=== PATIENT | male | born 1935 | race Caucasian/White ===

== ENCOUNTER 2016-06-13 20:13 | Emergency (ER) | payer MEDICARE ==
[~2016-06-13] VITALS: Ht 180.3 cm; Wt 91.0 kg
[2016-06-13 20:14] VITALS: BP 138/77; PULSE 98; RESP 14; TEMP 98.7; O2SAT 97
[2016-06-13] MEDS ORDERED: SODIUM CHLOR 0.9% 1000 ML INJ 1,000 ML IV SCH (22:02)
[2016-06-13 22:08] VITALS: BP 146/82; PULSE 121; RESP 22; O2SAT 98
--- NOTE | 2016-06-13 22:08 | PD ---
HPI Chief Complaint: Respiratory Symptoms Time Seen by Provider: 22:08 Travel History International Travel<30 days: No Contact w/Intl Traveler<30days: No Traveled to known affect area: No History of Present Illness HPI 80-year-old male presents to the emergency department for evaluation of productive cough, fever and generalized weakness. The patient states that he's had a productive cough that is worsening over the past 2 weeks. States he has yellow-green sputum. States that he was seen at a hospital back home 5 days ago and prescribed Zyrtec and Tessalon Perles. His symptoms have continued to worsen. States that he has had intermittent fevers over the past 4 days, last fever was last night at 101F. States that he's had decreased appetite and feels as though he is dehydrated. States that his urine is very dark. States that last night he was sitting on the edge of the bed and leaned over to grab something on the floor and accidentally fell over onto the floor. States he did not sustain any injuries, hit his head or lose consciousness but that he was very weak and had difficulty getting back up onto the bed. He denies chest pain, shortness of breath, abdominal pain, nausea, vomiting, diarrhea, lightheadedness, dizziness. He denies any medical conditions. Denies any history of lung disease or smoking history. Denies taking any medications. The patient and his are here visiting from [facility] for 2 weeks. No other complaints. [facility] Past Medical History Medical History: Denies Significant Hx Social History Alcohol Use: No Tobacco Use: No Substance Use: No Allergies-Medications (Allergen,Severity, Reaction): Coded Allergies: No Known Allergies (Unverified , 06/13/16) Reported Meds & Prescriptions Reported Meds & Active Scripts Active Zithromax Z-Eduardo (Azithromycin) 250 Mg Dspk 250 Mg PO DIRECTED 500 MG (2 tabs) day 1, then 1 tab days 2-5. Review of Systems Except as stated in HPI: all other systems reviewed are Neg Physical Exam Narrative GENERAL: Well-nourished and well-developed pleasant male patient in no acute distress. SKIN: Warm and dry. HEAD: Normocephalic and atraumatic. EYES: No injection, drainage, or hyphema noted. PERRLA. EOMI. ENT: No nasal drainage noted. Oropharynx is clear. NECK: Supple and the trachea is midline. CARDIOVASCULAR: Regular rate and rhythm. RESPIRATORY: Breath sounds are equal bilaterally with no accessory muscle use, wheezing, rhonchi, or crackles. GASTROINTESTINAL: Abdomen is soft, non-tender, and nondistended. MUSCULOSKELETAL: No obvious deformities, swelling, cyanosis, or ecchymosis is present throughout the upper and lower extremities. Patient has full range of motion without any signs of neurovascular compromise. NEUROLOGICAL: Awake, alert, and oriented. Normal speech and gait. Cranial nerves are grossly intact. Data Data Last Documented VS Vital Signs Date Time Temp Pulse Resp B/P Pulse Ox O2 Delivery O2 Flow Rate FiO2 06/14/16 01:40 99.2 98 17 139/67 98 06/13/16 22:08 Room Air Orders Complete Blood Count With Diff (06/13/16 22:02) Comprehensive Metabolic Panel (06/13/16 22:02) Lactic Acid Sepsis Protocol (06/13/16 22:02) Urinalysis - C+S If Indicated (06/13/16 22:02) Influenzae A/B Antigen (06/13/16 22:02) Chest, Single Ap (06/13/16 22:02) Ecg Monitoring (06/13/16 22:02) Iv Access Insert/Monitor (06/13/16 22:02) Oximetry (06/13/16 22:02) Sodium Chlor 0.9% 1000 Ml Inj (Ns 1000 M (06/13/16 22:02) Creatine Kinase (Cpk) (06/13/16 22:02) Blood Culture (06/13/16 22:07) Electrocardiogram (06/13/16 22:23) Ceftriaxone Inj (Rocephin Inj) (06/13/16 23:45) Sodium Chlor 0.9% 1000 Ml Inj (Ns 1000 M (06/14/16 00:30) Labs Laboratory Tests Test 06/13/16 06/13/16 22:20 22:25 White Blood Count 17.4 TH/MM3 Red Blood Count 4.41 MIL/MM3 Hemoglobin 13.1 GM/DL Hematocrit 37.8 % Mean Corpuscular Volume 85.7 FL Mean Corpuscular Hemoglobin 29.6 PG Mean Corpuscular Hemoglobin 34.6 % Concent Red Cell Distribution Width 13.3 % Platelet Count 304 TH/MM3 Mean Platelet Volume 8.9 FL Neutrophils (%) (Auto) 84.1 % Lymphocytes (%) (Auto) 4.9 % Monocytes (%) (Auto) 10.4 % Eosinophils (%) (Auto) 0.0 % Basophils (%) (Auto) 0.6 % Neutrophils # (Auto) 14.6 TH/MM3 Lymphocytes # (Auto) 0.8 TH/MM3 Monocytes # (Auto) 1.8 TH/MM3 Eosinophils # (Auto) 0.0 TH/MM3 Basophils # (Auto) 0.1 TH/MM3 CBC Comment AUTO DIFF Differential Comment AUTO DIFF CONFIRMED Platelet Estimate NORMAL Platelet Morphology Comment NORMAL Red Cell Morphology Comment NORMAL Sodium Level 131 MEQ/L Potassium Level 3.6 MEQ/L Chloride Level 94 MEQ/L Carbon Dioxide Level 26.9 MEQ/L Anion Gap 10 MEQ/L Blood Urea Nitrogen 17 MG/DL Creatinine 1.03 MG/DL Estimat Glomerular Filtration 70 ML/MIN Rate Random Glucose 118 MG/DL Lactic Acid Level 1.7 mmol/L Calcium Level 8.6 MG/DL Total Bilirubin 1.2 MG/DL Aspartate Amino Transf 15 U/L (AST/SGOT) Alanine Aminotransferase 22 U/L (ALT/SGPT) Alkaline Phosphatase 129 U/L Total Creatine Kinase 69 U/L Total Protein 7.5 GM/DL Albumin 2.7 GM/DL Urine Color DARK-YELLOW Urine Turbidity HAZY Urine pH 6.0 Urine Specific [place] 1.019 Urine Protein 30 mg/dL Urine Glucose (UA) NEG mg/dL Urine Ketones NEG mg/dL Urine Occult Blood MOD Urine Nitrite NEG Urine Bilirubin NEG Urine Urobilinogen 4.0 MG/DL Urine Leukocyte Esterase SMALL Urine RBC 8 /hpf Urine WBC 23 /hpf Urine Squamous Epithelial <1 /hpf Cells Urine Bacteria RARE /hpf Urine Mucus FEW /lpf Microscopic Urinalysis Comment CATH-CULT NOT IND MDM Medical Decision Making Medical Screen Exam Complete: Yes Emergency Medical Condition: Yes Differential Diagnosis Pneumonia versus sepsis versus dehydration versus electrolyte abnormality versus UTI Narrative Course 80-year-old male presents to the emergency department for evaluation of productive cough, fever, generalized weakness. Patient is afebrile. He is tachycardic with a heart rate of 121 bpm. Otherwise vital signs are within normal limits. Physical examination is essentially unremarkable. IV access is obtained, labs been drawn and sent. Patient is placed on cardiac telemetry and pulse oximetry monitoring. Patient is administered IV fluids. Patient signed out to my attending physician Dr. Weir who will assume care of the patient and disposition. Scripts Azithromycin (Zithromax Z-Eduardo)250 Mg [id number] Mg PO DIRECTED #1 DSPK Ref 0 500 MG (2 tabs) day 1, then 1 tab days 2-5. Prov:Graciela Weir MD 06/14/16 Carrol Benz Jun 13, 2016 22:08
--- NOTE | 2016-06-13 22:50 | RADRPT ---
EXAM DATE/TIME: 06/13/2016 22:25 [place] COMPARISON: No previous studies available for comparison. INDICATIONS : Cough. MEDICAL HISTORY : None. SURGICAL HISTORY : None. ENCOUNTER: Initial ACUITY: 1 day PAIN SCORE: 0/10 LOCATION: Bilateral chest FINDINGS: A single view of the chest demonstrates the lungs to be symmetrically aerated without evidence of mas s, infiltrate or effusion. The cardiomediastinal contours are unremarkable. Osseous structures are intact. CONCLUSION: No acute disease. Ken Hare MD on June 13, 2016 at 22:48 Board Certified Radiologist. This report was verified electronically.
[2016-06-13 22:57] LABS: AUTOMATED NEUTROPHIL # 14.6 TH/MM3 (1.8-7.7); BASOPHIL # 0.1 TH/MM3 (0-0.2); BASOPHIL % 0.6 % (0.0-2.0); HEMATOCRIT 37.8 % (39.0-51.0); LYMPH % 4.9 % (9.0-44.0); LYMPHOCYTE # 0.8 TH/MM3 (1.0-4.8); MEAN CELL VOLUME 85.7 FL (80.0-100.0); MEAN CORPUSCULAR HEMOGLOBIN 29.6 PG (27.0-34.0); MEAN CORPUSCULAR HGB CONC 34.6 % (32.0-36.0); MONO % 10.4 % (0.0-8.0); NEUT % 84.1 % (16.0-70.0); PLATELET COUNT 304 TH/MM3 (150-450); RED BLOOD COUNT 4.41 MIL/MM3 (4.50-5.90); RED CELL DISTRIBUTION WIDTH 13.3 % (11.6-17.2); WHITE BLOOD COUNT 17.4 TH/MM3 (4.0-11.0)
[2016-06-13 23:00] LABS: HEMO FLAGS AUTO DIFF
[2016-06-13 23:04] LABS: BACTERIA, URINE RARE /hpf; BLOOD, URINE MOD (NEG); COMMENT (UR) CATH-CULT NOT IND; CULTURE IF INDICATED CATH CULTURE NOT IND; GLUCOSE,URINE NEG (NEG); KETONE, URINE NEG (NEG); MUCUS URINE FEW /lpf (OCC); NITRITE,URINE NEG (NEG); SQUAMOUS EPITHELIAL CELL URINE <1 /hpf (0-5); URINE COLOR DARK-YELLOW (YELLW/STRAW)
[2016-06-13 23:13] LABS: ANION GAP 10 MEQ/L (5-15); AST (GOT) 15 U/L (15-37); BICARBONATE 26.9 MEQ/L (21.0-32.0); BLOOD UREA NITROGEN 17 MG/DL (7-18); CHLORIDE 94 MEQ/L (98-107); GLOMERULAR FILTRATION RATE 70 ML/MIN (>89); POTASSIUM 3.6 MEQ/L (3.5-5.1); SODIUM (NA) 131 MEQ/L (136-145)
[2016-06-13 23:16] LABS: ALKALINE PHOSPHATASE 129 U/L (45-117); ALT (GPT) 22 U/L (12-78); TOTAL BILIRUBIN ADULT 1.2 MG/DL (0.2-1.0)
[2016-06-13 23:27] LABS: CREATINE KINASE 69 U/L (39-308)
[2016-06-13 23:40] LABS: PLATELET ESTIMATE SMEAR NORMAL (NORMAL); PLATELET MORPHOLOGY NORMAL (NORMAL); SCAN/DIFF AUTO DIFF CONFIRMED
[2016-06-13] MEDS ORDERED: cefTRIAXone INJ 2,000 MG in SODIUM CHLORIDE 0.9% INJ 100 ML IV ONE (23:45)
--- NOTE | 2016-06-13 23:52 | PD ---
Physical Exam Date Seen by Provider: Jun 13, 2016 Narrative Patient presented with cough and concentrated urine. Data Data Last Documented VS Vital Signs Date Time Temp Pulse Resp B/P Pulse Ox O2 Delivery O2 Flow Rate FiO2 06/13/16 22:08 124 21 100 Room Air 06/13/16 22:08 146/82 06/13/16 20:14 98.7 Orders Complete Blood Count With Diff (06/13/16 22:02) Comprehensive Metabolic Panel (06/13/16 22:02) Lactic Acid Sepsis Protocol (06/13/16 22:02) Urinalysis - C+S If Indicated (06/13/16 22:02) Influenzae A/B Antigen (06/13/16 22:02) Chest, Single Ap (06/13/16 22:02) Ecg Monitoring (06/13/16 22:02) Iv Access Insert/Monitor (06/13/16 22:02) Oximetry (06/13/16 22:02) Sodium Chlor 0.9% 1000 Ml Inj (Ns 1000 M (06/13/16 22:02) Creatine Kinase (Cpk) (06/13/16 22:02) Blood Culture (06/13/16 22:07) Electrocardiogram (06/13/16 22:23) Ceftriaxone Inj (Rocephin Inj) (06/13/16 23:45) Sodium Chlor 0.9% 1000 Ml Inj (Ns 1000 M (06/14/16 00:30) Labs Laboratory Tests Test 06/13/16 06/13/16 22:20 22:25 White Blood Count 17.4 TH/MM3 Red Blood Count 4.41 MIL/MM3 Hemoglobin 13.1 GM/DL Hematocrit 37.8 % Mean Corpuscular Volume 85.7 FL Mean Corpuscular Hemoglobin 29.6 PG Mean Corpuscular Hemoglobin 34.6 % Concent Red Cell Distribution Width 13.3 % Platelet Count 304 TH/MM3 Mean Platelet Volume 8.9 FL Neutrophils (%) (Auto) 84.1 % Lymphocytes (%) (Auto) 4.9 % Monocytes (%) (Auto) 10.4 % Eosinophils (%) (Auto) 0.0 % Basophils (%) (Auto) 0.6 % Neutrophils # (Auto) 14.6 TH/MM3 Lymphocytes # (Auto) 0.8 TH/MM3 Monocytes # (Auto) 1.8 TH/MM3 Eosinophils # (Auto) 0.0 TH/MM3 Basophils # (Auto) 0.1 TH/MM3 CBC Comment AUTO DIFF Differential Comment AUTO DIFF CONFIRMED Platelet Estimate NORMAL Platelet Morphology Comment NORMAL Red Cell Morphology Comment NORMAL Sodium Level 131 MEQ/L Potassium Level 3.6 MEQ/L Chloride Level 94 MEQ/L Carbon Dioxide Level 26.9 MEQ/L Anion Gap 10 MEQ/L Blood Urea Nitrogen 17 MG/DL Creatinine 1.03 MG/DL Estimat Glomerular Filtration 70 ML/MIN Rate Random Glucose 118 MG/DL Lactic Acid Level 1.7 mmol/L Calcium Level 8.6 MG/DL Total Bilirubin 1.2 MG/DL Aspartate Amino Transf 15 U/L (AST/SGOT) Alanine Aminotransferase 22 U/L (ALT/SGPT) Alkaline Phosphatase 129 U/L Total Creatine Kinase 69 U/L Total Protein 7.5 GM/DL Albumin 2.7 GM/DL Urine Color DARK-YELLOW Urine Turbidity HAZY Urine pH 6.0 Urine Specific [place] 1.019 Urine Protein 30 mg/dL Urine Glucose (UA) NEG mg/dL Urine Ketones NEG mg/dL Urine Occult Blood MOD Urine Nitrite NEG Urine Bilirubin NEG Urine Urobilinogen 4.0 MG/DL Urine Leukocyte Esterase SMALL Urine RBC 8 /hpf Urine WBC 23 /hpf Urine Squamous Epithelial <1 /hpf Cells Urine Bacteria RARE /hpf Urine Mucus FEW /lpf Microscopic Urinalysis Comment CATH-CULT NOT IND MDM Supervised Visit with [facility]: Yes Interpretation(s) EKG shows a normal sinus rhythm with no acute ischemic change. Narrative Course CBC & BMP Diagram 06/13/16 22:20 Last Impressions Chest X-Ray 06/13/162 Signed Impressions: Service Date/Time: Monday, June 13, 2016 22:25 - CONCLUSION: No acute disease. Ken Hare MD Lactic acid level is 1.7. UA shows small leukocyte esterase and rare bacteria. I have ordered Rocephin, 2 g IV. The patient and his are comfortable with discharge. He does still have a heart rate of 106 so I will give him another liter of fluid prior to discharge. Sepsis Criteria SIRS Criteria (2 or more): Heart rate over 90, WBC > 99533, < 4000 or > 10% bands Sepsis Criteria (SIRS+source): Infect source susp/known Diagnosis Primary Impression: Cough Additional Impression: Leukocytosis Qualified Code: D72.829 - Leukocytosis, unspecified type Patient Instructions: Acute Bronchitis (DC), General Instructions Med/Other Pt SpecificInfo: Prescription(s) given Scripts Azithromycin (Zithromax Z-Eduardo)250 Mg [id number] Mg PO DIRECTED #1 DSPK Ref 0 500 MG (2 tabs) day 1, then 1 tab days 2-5. Prov:Graciela Weir MD 06/14/16 Disposition: 01 DISCHARGE HOME Condition: Stable Graciela Weir MD Jun 13, 2016 23:52
[2016-06-14] MEDS ORDERED: ZITHTAB PO (00:20)
[2016-06-14] MEDS ORDERED: SODIUM CHLOR 0.9% 1000 ML INJ 1,000 ML IV ONE (00:30)
[2016-06-14 01:40] VITALS: BP 139/67; TEMP 99.2
--- NOTE | 2016-06-14 15:33 | EKG ---
Date Performed: 06/13/2016 Time Performed: 23:17:44 PTAGE: 80 years EKG: Sinus rhythm NORMAL ECG NO PREVIOUS TRACING DOCTOR: Olayinka Ojeda Interpretating Date/Time 06/14/2016 15:32:29
== END 2016-06-14 01:43 | disposition home or self-care (01) ==
LOC: NEPE 20:13
DX: R05 Cough (principal); D72.829 Elevated white blood cell count, unspecified; R50.9 Fever, unspecified; J20.9 Acute bronchitis, unspecified; Z79.899 Other long term (current) drug therapy
CPT/HCPCS: 71010; 80053; 81001; 82550; 83605; 85025; 87040; 87804; 93005; 96361; 96365; 99285; J0696; J7030